=== PATIENT | male | born 1950 | race Caucasian/White ===

== ENCOUNTER 2016-10-23 17:57 | Outpatient (CLI) | payer OTHER | END 2016-10-23 17:58 | disposition critical access hospital (66) | DX: R46.2 Strange and inexplicable behavior (principal) | CPT/HCPCS: A0425; A0429 ==

== ENCOUNTER 2016-10-23 18:16 | Emergency (ER) | payer OTHER ==
[2016-10-23] MEDS ORDERED: OLANZapine 10 MG VIAL IM STA (19:09)
[2016-10-23] MEDS ORDERED: LORazepam 2 MG/ML SYRINGE IM STA (19:09)
[2016-10-23] MEDS ORDERED: LORazepam 2 MG/ML SYRINGE ONE (19:16)
[2016-10-23] MEDS ORDERED: WATER FOR INJECTION,STERILE 10 ML ONE (19:17)
[2016-10-23] MEDS ORDERED: OLANZapine 10 MG VIAL IM ONE (19:17)
[2016-10-24] MEDS ORDERED: OLANZapine ODT 5 MG TABLET TL ONE ×4 (03:16→12:00)
[2016-10-24] MEDS ORDERED: LORazepam 2 MG/ML SYRINGE IM STA (03:37)
[2016-10-24] MEDS ORDERED: OLANZapine 10 MG VIAL IM ONE (03:37)
[2016-10-24] MEDS ORDERED: WATER FOR INJECTION,STERILE 10 ML ONE (03:37)
[2016-10-24] MEDS ORDERED: OLANZapine 10 MG VIAL IM STA (03:37)
[2016-10-24] MEDS ORDERED: LORazepam 2 MG/ML SYRINGE ONE (03:38)
== END 2016-10-24 17:52 ==
DX: F29 Unspecified psychosis not due to a substance or known physiological condition (principal); F20.9 Schizophrenia, unspecified
CPT/HCPCS: 36415; 80053; 80306; 80320; 83690; 83735; 84443; 85025; 96372; 99284; J2060

== ENCOUNTER 2016-10-24 17:51 | Outpatient (CLI) | payer OTHER | END 2016-10-24 17:52 | DX: R46.89 Other symptoms and signs involving appearance and behavior (principal); R45.1 Restlessness and agitation | CPT/HCPCS: A0425; A0428 ==